=== PATIENT | male | born 1995 | race Caucasian/White ===

== ENCOUNTER 2021-11-24 10:40 | Emergency (ER) | payer SELFPAY ==
[~2021-11-24] VITALS: Ht 167.6 cm; Wt 61.2 kg
[2021-11-24] MEDS ORDERED: NAPROXEN250 MG PO (12:37)
[2021-11-24] MEDS ORDERED: POLYSPORIN OINT15 GM T (12:37)
[2021-11-24] MEDS ORDERED: TYLENOL325 M1 PO (12:37)
== END 2021-11-24 14:01 | disposition home or self-care (01) ==
LOC: ED 10:40
DX: S61.311A Laceration without foreign body of left index finger with damage to nail, initial encounter (principal); W23.0XXA Caught, crushed, jammed, or pinched between moving objects, initial encounter; Y93.89 Activity, other specified; Y92.89 Other specified places as the place of occurrence of the external cause; Y99.8 Other external cause status